=== PATIENT | female | born 1985 | race Caucasian/White ===

== ENCOUNTER 2016-08-25 05:16 | Inpatient (IN) | payer BC ==
[~2016-08-25] VITALS: Ht 165.1 cm; Wt 8.2 kg
[~2016-08-25 05:16] MED LIST: FLAGYL500 MG PO; HUMULIN10 ML SQ; LAC PO; METFORMIN HCL1000 MG PO
[2016-08-25 05:59] LABS: BASOPHIL % 1.2 % (0-2); PLATELET COUNT 217 x10^3mcL (130-400); RED CELL DISTRIBUTION WIDTH 13.8 % (11.5-14.5)
[2016-08-25 06:08] LABS: CALCIUM 9.3 mg/dL (8.5-10.1); CARBON DIOXIDE 21.7 mmol/L (21-32); CHLORIDE SERUM 98 mmol/L (98-107); CREATININE SERUM 0.8 mg/dL (0.6-1.0); GFR1 > 60 mL/min; GLUCOSE SERUM 298 mg/dL (74-106); SODIUM SERUM 132 mmol/L (136-145)
[2016-08-25 06:14] LABS: ALBUMIN 3.6 g/dL (3.4-5.0); ALKALINE PHOSPHATASE 86 U/L (46-116); ALT/SGPT 57 U/L (14-59); AST/SGOT 45 U/L (15-37); BILIRUBIN TOTAL 0.3 mg/dL (0.20-1.00)
[2016-08-25 06:18] LABS: TOTAL PROTEIN, SERUM 8.4 g/dL (6.4-8.2)
[2016-08-25 09:00] LABS: AMYLASE 44 U/L (25-115); LIPASE 287 IU/L (73-393); MAGNESIUM 1.7 mg/dL (1.8-2.4); PHOSPHOROUS 3.6 mg/dL (2.5-4.9)
[2016-08-25 09:46] LABS: CHOLESTEROL 134 mg/dL (<200); CHOLESTEROL/HDL RATIO 4.6; HDL CHOLESTEROL 29 mg/dL (40-60); TRIGLYCERIDES 415 mg/dL (<150)
[2016-08-25 10:31] VITALS: BP 128/77
[2016-08-25 12:30] VITALS: BP 121/70
[2016-08-25 13:01] VITALS: BP 121/70
[2016-08-25 17:50] VITALS: BP 112/78
[2016-08-25 18:43] LABS: UA SPECIFIC GRAVITY >=1.030 (1.005-1.035); microscopic required? YES; urine erythrocyte TRACE (NEGATIVE)
[2016-08-25 18:53] LABS: AMPHETAMINE QUAL UR NONE DETECTED (NEG <=1000)
[2016-08-26 06:22] VITALS: BP 116/71
[2016-08-26 06:27] LABS: CALCIUM 8.3 mg/dL (8.5-10.1); CARBON DIOXIDE 22.2 mmol/L (21-32); CHLORIDE SERUM 106 mmol/L (98-107); CREATININE SERUM 0.7 mg/dL (0.6-1.0); GFR1 > 60 mL/min; GLUCOSE SERUM 141 mg/dL (74-106); POTASSIUM SERUM 4.2 mmol/L (3.5-5.1); SODIUM SERUM 138 mmol/L (136-145)
[2016-08-26 06:39] LABS: BASOPHIL % 0.5 % (0-2); PLATELET COUNT 277 x10^3mcL (130-400); RED CELL DISTRIBUTION WIDTH 14.4 % (11.5-14.5)
[2016-08-26 10:12] VITALS: BP 108/68
[2016-08-26 14:29] VITALS: BP 99/52
[2016-08-26 15:34] VITALS: BP 99/52
[2016-08-26] MEDS ORDERED: LIPI10 PO (15:52)
[2016-08-26] MEDS ORDERED: ECO81 PO (15:53)
[2016-08-26] MEDS ORDERED: LAC PO (16:00)
[2016-08-26] MEDS ORDERED: MAC100 PO (16:00)
[2016-08-26 16:14] VITALS: BP 99/52
== END 2016-08-26 16:52 | disposition home or self-care (01) | DRG 872 ==
LOC: ED 05:16 → DU 07:30
PROVIDERS: Emergency Medicine; ADMIT Family Medicine
DX: A41.9 Sepsis, unspecified organism (principal); E87.1 Hypo-osmolality and hyponatremia; N39.0 Urinary tract infection, site not specified; M94.0 Chondrocostal junction syndrome [Tietze]; K21.9 Gastro-esophageal reflux disease without esophagitis; I10 Essential (primary) hypertension; E11.65 Type 2 diabetes mellitus with hyperglycemia; M79.7 Fibromyalgia; G90.8 Other disorders of autonomic nervous system; J45.909 Unspecified asthma, uncomplicated; E83.42 Hypomagnesemia; D72.829 Elevated white blood cell count, unspecified; F43.0 Acute stress reaction; E78.2 Mixed hyperlipidemia; Z79.4 Long term (current) use of insulin; Z79.84 Long term (current) use of oral hypoglycemic drugs; Z90.49 Acquired absence of other specified parts of digestive tract; Z88.0 Allergy status to penicillin; Z88.1 Allergy status to other antibiotic agents; Z82.49 Family history of ischemic heart disease and other diseases of the circulatory system; Z88.5 Allergy status to narcotic agent; Z71.3 Dietary counseling and surveillance; Z98.51 Tubal ligation status; Z88.8 Allergy status to other drugs, medicaments and biological substances; Z83.3 Family history of diabetes mellitus; Z87.01 Personal history of pneumonia (recurrent); Z72.89 Other problems related to lifestyle
CPT/HCPCS: 82962; 83880; 85378; C9113; J0696; J1815; J1885; J2060; J3475; J7030; J8597; Q0092